=== PATIENT | female | born 1955 | race Caucasian/White ===

== ENCOUNTER 2019-08-14 08:25 | Outpatient (CLI) | payer BC, MEDICARE | END 2019-08-14 23:59 | disposition home or self-care (01) | LOC: CARD 08:25 | PROVIDERS: ATTEND Nurse Practitioner Family | DX: G40.109 Localization-related (focal) (partial) symptomatic epilepsy and epileptic syndromes with simple partial seizures, not intractable, without status epilepticus (principal) | CPT/HCPCS: 95819 ==